=== PATIENT | female | born 1965 | race Caucasian/White ===

== ENCOUNTER → 2019-03-26 | Outpatient (CLI) | payer BC, OTHER | LOC: HYPER 03-19 13:39 | DX: T81.31XA Disruption of external operation (surgical) wound, not elsewhere classified, initial encounter (principal); L76.32 Postprocedural hematoma of skin and subcutaneous tissue following other procedure; D17.24 Benign lipomatous neoplasm of skin and subcutaneous tissue of left leg; J45.909 Unspecified asthma, uncomplicated; M67.472 Ganglion, left ankle and foot; M76.72 Peroneal tendinitis, left leg; F41.9 Anxiety disorder, unspecified; Z85.828 Personal history of other malignant neoplasm of skin; Y92.89 Other specified places as the place of occurrence of the external cause; Y83.8 Other surgical procedures as the cause of abnormal reaction of the patient, or of later complication, without mention of misadventure at the time of the procedure ==

== ENCOUNTER → 2019-04-02 | Outpatient (CLI) | payer BC, OTHER | LOC: HYPER 06:49 | DX: T81.31XD Disruption of external operation (surgical) wound, not elsewhere classified, subsequent encounter (principal); L76.32 Postprocedural hematoma of skin and subcutaneous tissue following other procedure; D17.24 Benign lipomatous neoplasm of skin and subcutaneous tissue of left leg; M67.472 Ganglion, left ankle and foot; M76.72 Peroneal tendinitis, left leg; J45.909 Unspecified asthma, uncomplicated; Y83.8 Other surgical procedures as the cause of abnormal reaction of the patient, or of later complication, without mention of misadventure at the time of the procedure ==

== ENCOUNTER → 2019-04-09 | Outpatient (CLI) | payer BC, OTHER | LOC: HYPER 06:56 | DX: T81.31XD Disruption of external operation (surgical) wound, not elsewhere classified, subsequent encounter (principal); L76.32 Postprocedural hematoma of skin and subcutaneous tissue following other procedure; D17.24 Benign lipomatous neoplasm of skin and subcutaneous tissue of left leg; J45.909 Unspecified asthma, uncomplicated; M67.472 Ganglion, left ankle and foot; M76.72 Peroneal tendinitis, left leg; Z85.828 Personal history of other malignant neoplasm of skin; Y83.8 Other surgical procedures as the cause of abnormal reaction of the patient, or of later complication, without mention of misadventure at the time of the procedure ==

== ENCOUNTER → 2019-04-16 | Outpatient (CLI) | payer BC, OTHER | LOC: HYPER 06:44 | DX: T81.31XD Disruption of external operation (surgical) wound, not elsewhere classified, subsequent encounter (principal); L76.32 Postprocedural hematoma of skin and subcutaneous tissue following other procedure; D17.24 Benign lipomatous neoplasm of skin and subcutaneous tissue of left leg; M67.472 Ganglion, left ankle and foot; M76.72 Peroneal tendinitis, left leg; M84.38XD Stress fracture, other site, subsequent encounter for fracture with routine healing; J45.909 Unspecified asthma, uncomplicated; Z85.6 Personal history of leukemia; Y83.8 Other surgical procedures as the cause of abnormal reaction of the patient, or of later complication, without mention of misadventure at the time of the procedure ==

== ENCOUNTER → 2019-04-23 | Outpatient (CLI) | payer BC, OTHER | LOC: HYPER 07:14 | DX: T81.31XD Disruption of external operation (surgical) wound, not elsewhere classified, subsequent encounter (principal); D17.24 Benign lipomatous neoplasm of skin and subcutaneous tissue of left leg; L76.32 Postprocedural hematoma of skin and subcutaneous tissue following other procedure; J45.909 Unspecified asthma, uncomplicated; M67.472 Ganglion, left ankle and foot; M76.72 Peroneal tendinitis, left leg; Y83.8 Other surgical procedures as the cause of abnormal reaction of the patient, or of later complication, without mention of misadventure at the time of the procedure ==

== ENCOUNTER → 2019-05-07 | Outpatient (CLI) | payer BC, OTHER | LOC: HYPER 04-30 06:33 | DX: T81.31XD Disruption of external operation (surgical) wound, not elsewhere classified, subsequent encounter (principal); L76.32 Postprocedural hematoma of skin and subcutaneous tissue following other procedure; D17.24 Benign lipomatous neoplasm of skin and subcutaneous tissue of left leg; J45.909 Unspecified asthma, uncomplicated; M67.472 Ganglion, left ankle and foot; M76.72 Peroneal tendinitis, left leg; Y83.8 Other surgical procedures as the cause of abnormal reaction of the patient, or of later complication, without mention of misadventure at the time of the procedure ==

== ENCOUNTER → 2019-05-28 | Outpatient (CLI) | payer BC, OTHER | LOC: HYPER 09:00 | DX: T81.31XD Disruption of external operation (surgical) wound, not elsewhere classified, subsequent encounter (principal); L76.32 Postprocedural hematoma of skin and subcutaneous tissue following other procedure; L03.116 Cellulitis of left lower limb; D17.24 Benign lipomatous neoplasm of skin and subcutaneous tissue of left leg; L84 Corns and callosities; M67.472 Ganglion, left ankle and foot; M76.72 Peroneal tendinitis, left leg; J45.909 Unspecified asthma, uncomplicated; Z85.6 Personal history of leukemia; Y83.8 Other surgical procedures as the cause of abnormal reaction of the patient, or of later complication, without mention of misadventure at the time of the procedure ==

== ENCOUNTER → 2019-06-11 | Outpatient (CLI) | payer BC, OTHER | LOC: HYPER 07:15 | DX: T81.31XD Disruption of external operation (surgical) wound, not elsewhere classified, subsequent encounter (principal); L76.32 Postprocedural hematoma of skin and subcutaneous tissue following other procedure; L84 Corns and callosities; D17.24 Benign lipomatous neoplasm of skin and subcutaneous tissue of left leg; M67.472 Ganglion, left ankle and foot; M76.72 Peroneal tendinitis, left leg; J45.909 Unspecified asthma, uncomplicated; Y83.8 Other surgical procedures as the cause of abnormal reaction of the patient, or of later complication, without mention of misadventure at the time of the procedure ==